=== PATIENT | male | born 1935 | race Caucasian/White ===

== ENCOUNTER → 2017-11-13 | Outpatient (CLI) | payer MEDICARE ==
[~2017-11-13] MED LIST: AMLO5 PO; ASCO500 PO; ASPI500 PO; ASPI81CH PO; CEFU500 PO; CITA20 PO; CITRACAL + BON1 EACH PO; DOXY100; ENAL10; ERGO400 PO; FINA5 PO; FISH1000 PO; HYDCHL12.5 PO; IRON150C PO; LEVFLO500 PO; LISI20 PO; METF500 PO; METO25 PO; METO25ER PO; Norco 5-325 Ta1 EACH PO; PANT40 PO; Prinivil10 MG PO; Roxicodone5 MG PO; SIMV10 PO; TAMS.4ER PO; WARF2 PO; WARF4 PO; Zantac150 MG PO; Zithromax250 MG PO
== END ==
LOC: LAB SHORT 12:01 → LAB EV 12:01
DX: N39.0 Urinary tract infection, site not specified (principal)
CPT/HCPCS: 87077; 87086; 87186

== ENCOUNTER 2018-10-03 08:06 | Emergency (ER) | payer MEDICARE, SELFPAY ==
[~2018-10-03] VITALS: Ht 172.7 cm; Wt 88.9 kg
[2018-10-03 08:49] LABS: BASOPHILS ABSOLUTE AUTO 0.06 K/mm3 (0.00-0.23); BASOPHILS PERCENT AUTO 2 % (0-2); EOSINOPHILS ABSOLUTE AUTO 0.18 K/mm3 (0.00-0.68); EOSINOPHILS PERCENT AUTO 5 % (0-6); Hematocrit 32.1 % (37.0-53.0); Hemoglobin 10.3 g/dL (13.5-17.5); IMMATURE GRAN ABSOLUTE AUTO 0.01 K/mm3 (0.00-0.10); IMMATURE GRAN PERCENT AUTO 0 % (0-1); LYMPHOCYTES ABSOLUTE AUTO 0.75 K/mm3 (0.84-5.20); LYMPHOCYTES PERCENT AUTO 19 % (21-46); MONOCYTES ABSOLUTE AUTO 0.66 K/mm3 (0.16-1.47); MONOCYTES PERCENT AUTO 17 % (4-13); Mean Corpuscular HGB 29.9 pg (26.0-34.0); Mean Corpuscular HGB Conc 32.1 g/dL (31.5-36.5); Mean Corpuscular Volume 93 fL (80-100); Mean Platelet Volume 9.5 fL (9.1-12.4); NEUTROPHILS ABSOLUTE AUTO 2.35 K/mm3 (1.96-9.15); NEUTROPHILS PERCENT AUTO 59 % (41-73); Platelet Count 159 K/mm3 (150-400); RDW Coefficient Variation 14.9 % (11.7-14.2); RDW Standard Deviation 50.6 fL (35.1-46.3); Red Blood Cell Count 3.45 M/mm3 (4.30-5.90); White Blood Cell Count 4.01 K/mm3 (4.00-11.30)
[2018-10-03 09:07] LABS: Alanine Aminotransfer (ALT/SGP 19 U/L (12-78); Albumin, Blood 3.2 g/dL (3.4-5.0); Albumin/Globulin Ratio 0.9 (0.8-1.8); Alk Phos 130 U/L (50-136); Anion Gap 9 mmol/L (6-16); Aspartate Aminotrans (AST/SGOT 12 U/L (12-37); Bilirubin, Total 0.3 mg/dL (0.1-1.0); Blood Urea Nitrogen 22 mg/dL (8-24); Bun/Creatinine Ratio 18.8 (12.0-20.0); CO2, Blood 21 mmol/L (21-32); Calcium, Blood 9.7 mg/dL (8.5-10.1); Chloride, Blood 113 mmol/L (98-108); Creatinine, Blood 1.17 mg/dL (0.60-1.20); Globulin, Blood 3.5 g/dL (2.2-4.0); Glomerular Filtration Rate >60 (60-); Glucose, Blood 106 mg/dL (70-99); Potassium, Blood 4.4 mmol/L (3.5-5.5); Sodium, Blood 143 mmol/L (136-145); Total Protein, Blood 6.7 g/dL (6.4-8.2); Troponin I 0.016 ng/mL (0.000-0.040)
[2018-10-03 09:45] LABS: Source, Urine Clean Catch
[2018-10-03 10:04] LABS: Bilirubin, Urine Neg (Neg); Blood, Urine Neg (Neg); Glucose Qualitative, Urine Neg (Neg); Ketones, Urine Neg (Neg); Leukocyte Esterase, Urine Neg (Neg); Nitrite, Urine Neg (Neg); Protein, Urine Neg (Neg); Urobilinogen, Urine NORM (Normal)
[2018-10-03 10:13] LABS: Appearance, Urine Clear (Clear); Color, Urine Yellow (P-Yellow)
[2018-10-03] MEDS ORDERED: MECL12.5 PO (10:51)
== END 2018-10-03 11:55 | disposition home or self-care (01) ==
LOC: ER 08:06
PROVIDERS: Emergency Medicine
DX: R42 Dizziness and giddiness (principal); Z88.0 Allergy status to penicillin; Z88.1 Allergy status to other antibiotic agents; Z88.8 Allergy status to other drugs, medicaments and biological substances; Z79.899 Other long term (current) drug therapy; Z79.01 Long term (current) use of anticoagulants; Z79.84 Long term (current) use of oral hypoglycemic drugs; Z79.82 Long term (current) use of aspirin; I25.2 Old myocardial infarction; E11.9 Type 2 diabetes mellitus without complications; K21.9 Gastro-esophageal reflux disease without esophagitis; Z87.891 Personal history of nicotine dependence
CPT/HCPCS: 71046; 80053; 81003; 84484; 85025; 93005; 93010; 99284-25

== ENCOUNTER 2018-10-26 10:34 | Emergency (ER) | payer MEDICARE, SELFPAY ==
[~2018-10-26] VITALS: Ht 172.7 cm; Wt 91.2 kg
[~2018-10-26 10:34] MED LIST changes: +MECL12.5 PO
[2018-10-26 11:33] LABS: BASOPHILS ABSOLUTE AUTO 0.06 K/mm3 (0.00-0.23); BASOPHILS PERCENT AUTO 1 % (0-2); EOSINOPHILS ABSOLUTE AUTO 0.11 K/mm3 (0.00-0.68); EOSINOPHILS PERCENT AUTO 2 % (0-6); Hemoglobin 9.8 g/dL (13.5-17.5); IMMATURE GRAN ABSOLUTE AUTO 0.02 K/mm3 (0.00-0.10); IMMATURE GRAN PERCENT AUTO 0 % (0-1); LYMPHOCYTES ABSOLUTE AUTO 0.63 K/mm3 (0.84-5.20); LYMPHOCYTES PERCENT AUTO 13 % (21-46); MONOCYTES ABSOLUTE AUTO 0.63 K/mm3 (0.16-1.47); MONOCYTES PERCENT AUTO 13 % (4-13); Mean Corpuscular HGB 30.7 pg (26.0-34.0); Mean Corpuscular HGB Conc 32.7 g/dL (31.5-36.5); Mean Corpuscular Volume 94 fL (80-100); Mean Platelet Volume 9.2 fL (9.1-12.4); NEUTROPHILS ABSOLUTE AUTO 3.44 K/mm3 (1.96-9.15); NEUTROPHILS PERCENT AUTO 70 % (41-73); Platelet Count 206 K/mm3 (150-400); RDW Coefficient Variation 14.9 % (11.7-14.2); RDW Standard Deviation 51.4 fL (35.1-46.3); Red Blood Cell Count 3.19 M/mm3 (4.30-5.90); White Blood Cell Count 4.89 K/mm3 (4.00-11.30)
[2018-10-26 11:49] LABS: Alanine Aminotransfer (ALT/SGP 22 U/L (12-78); Albumin, Blood 3.5 g/dL (3.4-5.0); Alk Phos 93 U/L (50-136); Anion Gap 10 mmol/L (6-16); Aspartate Aminotrans (AST/SGOT 14 U/L (12-37); Bilirubin, Total 0.8 mg/dL (0.1-1.0); Blood Urea Nitrogen 25 mg/dL (8-24); Bun/Creatinine Ratio 21.9 (12.0-20.0); CO2, Blood 22 mmol/L (21-32); Calcium, Blood 10.1 mg/dL (8.5-10.1); Chloride, Blood 108 mmol/L (98-108); Creatinine, Blood 1.14 mg/dL (0.60-1.20); Globulin, Blood 3.6 g/dL (2.2-4.0); Glomerular Filtration Rate >60 (60-); Glucose, Blood 95 mg/dL (70-99); Sodium, Blood 140 mmol/L (136-145); Total Protein, Blood 7.1 g/dL (6.4-8.2)
[2018-10-26 11:51] LABS: International Normalized Ratio 2.46
== END 2018-10-26 13:00 | disposition home or self-care (01) ==
LOC: ER 10:34
PROVIDERS: Emergency Medicine
DX: S90.32XA Contusion of left foot, initial encounter (principal); I50.9 Heart failure, unspecified; E11.9 Type 2 diabetes mellitus without complications; J44.9 Chronic obstructive pulmonary disease, unspecified; I25.2 Old myocardial infarction; Z87.891 Personal history of nicotine dependence; Z88.0 Allergy status to penicillin; Z88.1 Allergy status to other antibiotic agents; Z88.8 Allergy status to other drugs, medicaments and biological substances; Z79.899 Other long term (current) drug therapy; Z79.82 Long term (current) use of aspirin; Z79.01 Long term (current) use of anticoagulants; Z79.84 Long term (current) use of oral hypoglycemic drugs
CPT/HCPCS: 36415; 73630; 80053; 83880; 85025; 85610; 99283-25

== ENCOUNTER 2019-03-08 12:30 | Observation (INO) | payer MEDICARE, OTHER ==
[~2019-03-08] VITALS: Ht 172.7 cm; Wt 94.0 kg
[~2019-03-08 12:30] MED LIST changes: -ASPI81CH PO; -CITRACAL + BON1 EACH PO; -FINA5 PO; -FISH1000 PO; -HYDCHL12.5 PO; -METF500 PO; -METO25 PO; -PANT40 PO; -Prinivil10 MG PO; -SIMV10 PO; -TAMS.4ER PO
[2019-03-08 13:13] LABS: BASOPHILS ABSOLUTE AUTO 0.02 K/mm3 (0.00-0.23); BASOPHILS PERCENT AUTO 0 % (0-2); EOSINOPHILS PERCENT AUTO 0 % (0-6); Hematocrit 33.3 % (37.0-53.0); Hemoglobin 10.8 g/dL (13.5-17.5); IMMATURE GRAN ABSOLUTE AUTO 0.03 K/mm3 (0.00-0.10); IMMATURE GRAN PERCENT AUTO 0 % (0-1); LYMPHOCYTES ABSOLUTE AUTO 0.58 K/mm3 (0.84-5.20); LYMPHOCYTES PERCENT AUTO 8 % (21-46); MONOCYTES ABSOLUTE AUTO 1.18 K/mm3 (0.16-1.47); MONOCYTES PERCENT AUTO 16 % (4-13); Mean Corpuscular HGB 29.3 pg (26.0-34.0); Mean Corpuscular HGB Conc 32.4 g/dL (31.5-36.5); Mean Corpuscular Volume 90 fL (80-100); NEUTROPHILS ABSOLUTE AUTO 5.37 K/mm3 (1.96-9.15); NEUTROPHILS PERCENT AUTO 75 % (41-73); Platelet Count 175 K/mm3 (150-400); RDW Coefficient Variation 15.6 % (11.7-14.2); RDW Standard Deviation 51.3 fL (35.1-46.3); Red Blood Cell Count 3.69 M/mm3 (4.30-5.90); White Blood Cell Count 7.18 K/mm3 (4.00-11.30)
[2019-03-08 13:36] LABS: Albumin, Blood 3.5 g/dL (3.4-5.0); Albumin/Globulin Ratio 0.9 (0.8-1.8); Bilirubin, Total 0.7 mg/dL (0.1-1.0); Calcium, Blood 9.7 mg/dL (8.5-10.1); Creatinine, Blood 1.6 mg/dL (0.60-1.20); Globulin, Blood 4.1 g/dL (2.2-4.0); Potassium, Blood 4.2 mmol/L (3.5-5.5); Total Protein, Blood 7.6 g/dL (6.4-8.2); Troponin I 0.057 ng/mL (0.000-0.040)
[2019-03-08] MEDS ORDERED: Hydrochloroth12.5 MG PO (15:13)
[2019-03-08] MEDS ORDERED: SIMV40 PO (15:13)
[2019-03-08] MEDS ORDERED: METF500C PO (15:14)
[2019-03-08] MEDS ORDERED: TAMS.4ER PO (15:14)
[2019-03-08] MEDS ORDERED: PANT40 PO (15:15)
[2019-03-08] MEDS ORDERED: FINA5 PO (15:15)
[2019-03-08] MEDS ORDERED: Zoloft25 MG PO (15:16)
[2019-03-08] MEDS ORDERED: METO25 PO (15:16)
[2019-03-08] MEDS ORDERED: PRINIVIL10 MG PO (15:19)
[2019-03-08] MEDS ORDERED: WARF4 PO (15:21)
[2019-03-08] MEDS ORDERED: VITAMIN D350 MCG PO (15:40)
[2019-03-08] MEDS ORDERED: Fish Oil 10001000 MG PO (15:40)
[2019-03-08] MEDS ORDERED: Aspir 8181 MG PO (15:40)
--- NOTE | 2019-03-08 16:42 | NUR ---
ER ADMIT- PT ARRIVED TO PCU 13 FROM ED, PT SBA INTO BED. 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 PT DENIES ANY COMPLAINTS. LS CLEAR, ON RA, SOB WITH EXERTION. PT REPORTS USES BIPAP AT HS THAT SON IS BRINGING IN. TELE 100% PACED AT 66. 1+ BLE EDEMA. PT SPOUSE AT BEDSIDE AND ASSISTS WITH ADMIT HISTORY. PT ORIENTED TO ROOM AND CALL SYSTEM. VSS. CALL LIGHT IN REACH. DR MORALEZ IN TO SEE PT AT THIS TIME.
[2019-03-08 18:36] LABS: Source, Urine Clean Catch
[2019-03-08 18:42] LABS: Bilirubin, Urine Neg (Neg); Blood, Urine Neg (Neg); Glucose Qualitative, Urine Neg (Neg); Ketones, Urine Neg (Neg); Leukocyte Esterase, Urine 1+ (Neg); Nitrite, Urine Neg (Neg); Protein, Urine 1+ (Neg); Specific Gravity, Urine 1.015 (1.003-1.022); Urobilinogen, Urine NORM (Normal)
[2019-03-08 18:47] LABS: Appearance, Urine Clear (Clear); Color, Urine Yellow (P-Yellow)
[2019-03-08 18:49] LABS: Bacteria Few /hpf; Red Blood Cells, Urine 0-2 /hpf (0-2); Squamous Epithelial Cells Few /hpf (Few)
[2019-03-09 01:58] LABS: Bun/Creatinine Ratio 23.2 (12.0-20.0); Calcium, Blood 10.2 mg/dL (8.5-10.1); Creatinine, Blood 1.55 mg/dL (0.60-1.20); International Normalized Ratio 3.16; Potassium, Blood 3.8 mmol/L (3.5-5.5); Prothrombin Time Results 30.2 Sec (9.7-11.5)
--- NOTE | 2019-03-09 07:20 | NUR ---
SHIFT SUMMARY PT IS AN 83 Y/O MALE, ADMITTED FOR ELEVATED TROPONINS. HE IS A&O X 3, THOUGH CAN BE OCCASIONALLY FORGETFUL. HE IS INDEPENDENT UP WITH A URINAL. NO COMPLAINTS OF PAIN, NAUSEA OR SOB. VITAL SIGNS STABLE. TELE SHOWED 100% VENTRICULAR PACED IN THE 60S. NO ACUTE CHANGES IN PT CONDITION NOTED DURING THE NIGHT. REPORT GIVEN TO ONCOMING RN.
[2019-03-09] MEDS ORDERED: FURO40 PO (17:17)
[2019-03-09] MEDS ORDERED: POTCHL20ER PO (17:18)
--- NOTE | 2019-03-09 18:08 | NUR ---
DISCHARGE INSTRUCTIONS GONE OVER WITH PT AND FAMILY. PROVIDED SPECIFIC INSTRUCTIONS REGARDING CHF AND CARE AT HOME. INFORMED PT ON HOW/WHERE TO GERIATRIC CASE MANAGER PRESCRIPTIONS. BELONGINS GATHERED AND SENT WITH PT AND FAMILY. PT WAS ESCORTED OUT VIA W/C BY [facility].
== END 2019-03-09 18:07 | disposition home or self-care (01) ==
LOC: ER 12:30 → PCU 12:31
PROVIDERS: Emergency Medicine; ADMIT Internal Medicine Endocrinology, Diabetes & Metabolism
DX: I11.0 Hypertensive heart disease with heart failure (principal); I50.23 Acute on chronic systolic (congestive) heart failure; R79.89 Other specified abnormal findings of blood chemistry; I25.10 Atherosclerotic heart disease of native coronary artery without angina pectoris; I48.20 Chronic atrial fibrillation, unspecified; F01.50 Vascular dementia, unspecified severity, without behavioral disturbance, psychotic disturbance, mood disturbance, and anxiety; K21.0 Gastro-esophageal reflux disease with esophagitis; J44.9 Chronic obstructive pulmonary disease, unspecified; D64.9 Anemia, unspecified; G47.33 Obstructive sleep apnea (adult) (pediatric); R73.01 Impaired fasting glucose; R79.1 Abnormal coagulation profile; E66.9 Obesity, unspecified; Z68.31 Body mass index [BMI] 31.0-31.9, adult; Z90.49 Acquired absence of other specified parts of digestive tract; Z95.0 Presence of cardiac pacemaker; Z87.891 Personal history of nicotine dependence; Z88.0 Allergy status to penicillin; Z88.1 Allergy status to other antibiotic agents; Z88.8 Allergy status to other drugs, medicaments and biological substances; Z79.84 Long term (current) use of oral hypoglycemic drugs; Z79.82 Long term (current) use of aspirin; Z79.899 Other long term (current) drug therapy; Z95.1 Presence of aortocoronary bypass graft; Z86.73 Personal history of transient ischemic attack (TIA), and cerebral infarction without residual deficits
CPT/HCPCS: 36415; 71046; 80048; 80053; 81001; 83880; 84484; 85025; 85610; 87086; 93005; 93010; 93306; 94762; 96374; 99285-25; G0378; J1940

== ENCOUNTER → 2019-06-27 | Outpatient (CLI) | payer MEDICARE, OTHER ==
[~2019-06-27] MED LIST changes: +Aspir 8181 MG PO; +FINA5 PO; +FURO40 PO; +Fish Oil 10001000 MG PO; +Hydrochloroth12.5 MG PO; +METF500C PO; +METO25 PO; +PANT40 PO; +POTCHL20ER PO; +PRINIVIL10 MG PO; +SIMV40 PO; +TAMS.4ER PO; +VITAMIN D350 MCG PO; +Zoloft25 MG PO
[2019-06-27 11:39] LABS: BASOPHILS ABSOLUTE AUTO 0.06 K/mm3 (0.00-0.23); BASOPHILS PERCENT AUTO 1 % (0-2); EOSINOPHILS ABSOLUTE AUTO 0.13 K/mm3 (0.00-0.68); EOSINOPHILS PERCENT AUTO 2 % (0-6); Hematocrit 35.2 % (37.0-53.0); IMMATURE GRAN ABSOLUTE AUTO 0.02 K/mm3 (0.00-0.10); IMMATURE GRAN PERCENT AUTO 0 % (0-1); LYMPHOCYTES ABSOLUTE AUTO 0.84 K/mm3 (0.84-5.20); LYMPHOCYTES PERCENT AUTO 14 % (21-46); MONOCYTES PERCENT AUTO 12 % (4-13); Mean Corpuscular HGB 30.8 pg (26.0-34.0); Mean Corpuscular HGB Conc 34.1 g/dL (31.5-36.5); Mean Corpuscular Volume 90 fL (80-100); Mean Platelet Volume 9.7 fL (9.1-12.4); NEUTROPHILS ABSOLUTE AUTO 4.07 K/mm3 (1.96-9.15); NEUTROPHILS PERCENT AUTO 70 % (41-73); Platelet Count 215 K/mm3 (150-400); RDW Coefficient Variation 14.9 % (11.7-14.2); White Blood Cell Count 5.82 K/mm3 (4.00-11.30)
[2019-06-27 11:50] LABS: Albumin, Blood 3.9 g/dL (3.4-5.0); Bilirubin, Total 0.6 mg/dL (0.1-1.0); Bun/Creatinine Ratio 16.3 (12.0-20.0); Calcium, Blood 10.8 mg/dL (8.5-10.1); Creatinine, Blood 1.41 mg/dL (0.60-1.20); Potassium, Blood 3.5 mmol/L (3.5-5.5); Total Protein, Blood 7.9 g/dL (6.4-8.2); Troponin I 0.036 ng/mL (0.000-0.040)
[2019-06-27 12:56] LABS: International Normalized Ratio 2.13; Prothrombin Time Results 21.8 Sec (9.7-11.5)
[2019-06-27 20:31] LABS: Campylobacter Sp Not Detected (NOT DETECT)
[2019-06-27 20:32] LABS: Adenovirus F 40/41 Not Detected (NOT DETECT); Astrovirus Not Detected (NOT DETECT); Cryptosporidium Not Detected (NOT DETECT); Cyclospora Cayetanensis Not Detected (NOT DETECT); E. Coli O157 Not Detected (NOT DETECT); Entamoeba Histolytica Not Detected (NOT DETECT); Enteroaggregative E. coli-EAEC Not Detected (NOT DETECT); Enteropathogenic E. coli-EPEC Not Detected (NOT DETECT); Enterotoxigenic E. coli-ETEC Not Detected (NOT DETECT); Giardia Lamblia Not Detected (NOT DETECT); Norovirus GI/GII Not Detected (NOT DETECT); Plesiomonas Shigelloides Not Detected (NOT DETECT); Rotavirus A Not Detected (NOT DETECT); Salmonella Sp Not Detected (NOT DETECT); Sapovirus Not Detected (NOT DETECT); Shiga Toxin-prod E. coli-STEC Not Detected (NOT DETECT); Shigella/Enteroin E. coli-EIEC Not Detected (NOT DETECT); Vibrio Cholerae Not Detected (NOT DETECT); Vibrio Sp Not Detected (NOT DETECT); Yersinia Enterocolitica Not Detected (NOT DETECT)
== END | disposition home or self-care (01) ==
LOC: LAB SHORT 11:33 → LAB EV 11:33
PROVIDERS: Physician Assistant
DX: Z79.01 Long term (current) use of anticoagulants (principal); Z51.81 Encounter for therapeutic drug level monitoring; R07.9 Chest pain, unspecified; R10.9 Unspecified abdominal pain; R19.7 Diarrhea, unspecified
CPT/HCPCS: 0097U; 80053; 83690; 84484; 85025; 85610

== ENCOUNTER → 2019-07-20 | Outpatient (CLI) | payer MEDICARE, OTHER ==
[2019-07-20 14:32] LABS: International Normalized Ratio 2.67
== END ==
LOC: LAB EV 09:50 → LAB SHORT 09:50
PROVIDERS: Physician Assistant
DX: I48.91 Unspecified atrial fibrillation (principal)
CPT/HCPCS: 85610

== ENCOUNTER → 2019-12-22 | Outpatient (CLI) | payer MEDICARE, OTHER ==
[2019-12-23 10:08] LABS: Calcium, Urine Calculation Unable to Calculate mg/24hrs (42.0-353.0)
[2019-12-23 10:09] LABS: Calcium, Urine <5.0 mg/dL (< 17.5)
== END | disposition home or self-care (01) ==
LOC: LAB 10:16 → LAB SHORT 10:16
PROVIDERS: Physician Assistant
DX: E83.52 Hypercalcemia (principal)
CPT/HCPCS: 81050; 82340

== ENCOUNTER 2020-05-03 09:24 | Day surgery (SDC) | payer MEDICARE, SELFPAY ==
[~2020-05-03] VITALS: Ht 165.1 cm; Wt 100.0 kg
--- NOTE | 2020-05-03 14:09 | NUR ---
SPOKE WITH PHARMACIST NINA REGARDING PT'S ALLERGIES. NINA RECOMMENDED ANCEF FOR CASE.
--- NOTE | 2020-05-03 16:52 | NUR ---
PT ARRIVED BACK TO RECOVERY ROOM IN BED. LACW PACEMAKER CHANGE-OUT SITE SOFT NON-TENDER WITH NO HEMATOMA, NO PULSATILE BLEEDING WITH INTACT DRESSING. PT DENIES CHEST PAIN. PT'S IN ROOM. PT IS EATING FOOD AND DRINKING COFFEE. CALL LIGHT IN REACH.
--- NOTE | 2020-05-03 17:41 | NUR ---
NO CHANGES TO [facility] PACEMAKER SITE. DISCHARGE INSTRUCTIONS REVIEWED ALL QUESIONS ANSWERED.
--- NOTE | 2020-05-03 18:04 | NUR ---
NO CHANGES TO LACW SITE. 20 G IV DISCONTINUED FROM RIGHT AC WITH INTACT CANNULA. PT ESCORTED OUT VIA WHEELCHAIR ESCORT.
== END 2020-05-03 18:00 | disposition home or self-care (01) ==
LOC: MHTC 09:24
DX: Z45.010 Encounter for checking and testing of cardiac pacemaker pulse generator [battery] (principal); I49.5 Sick sinus syndrome; I48.21 Permanent atrial fibrillation; I25.10 Atherosclerotic heart disease of native coronary artery without angina pectoris; I12.9 Hypertensive chronic kidney disease with stage 1 through stage 4 chronic kidney disease, or unspecified chronic kidney disease; E11.22 Type 2 diabetes mellitus with diabetic chronic kidney disease; N18.9 Chronic kidney disease, unspecified; E11.51 Type 2 diabetes mellitus with diabetic peripheral angiopathy without gangrene; I25.2 Old myocardial infarction; I45.89 Other specified conduction disorders; E78.00 Pure hypercholesterolemia, unspecified; I08.1 Rheumatic disorders of both mitral and tricuspid valves; I27.20 Pulmonary hypertension, unspecified; Z87.891 Personal history of nicotine dependence; Z98.61 Coronary angioplasty status; Z79.82 Long term (current) use of aspirin; Z79.84 Long term (current) use of oral hypoglycemic drugs; Z79.01 Long term (current) use of anticoagulants; Z88.1 Allergy status to other antibiotic agents; Z88.0 Allergy status to penicillin; Z88.8 Allergy status to other drugs, medicaments and biological substances
CPT/HCPCS: 33228; 99152; 99153; C1781; C1785; J0690; J1644; J2250; J3010; J7030; J7040

== ENCOUNTER 2023-01-25 11:56 | Emergency (ER) | payer MEDICARE ==
[~2023-01-25] VITALS: Ht 170.2 cm; Wt 86.2 kg
[2023-01-25] MEDS ORDERED: AZIT200SU (12:24)
[2023-01-25 12:38] LABS: BASOPHILS ABSOLUTE AUTO 0.06 K/mm3 (0.00-0.23); BASOPHILS PERCENT AUTO 1 % (0-2); EOSINOPHILS PERCENT AUTO 2 % (0-6); Hematocrit 34.9 % (37.0-53.0); Hemoglobin 11.1 g/dL (13.5-17.5); IMMATURE GRAN ABSOLUTE AUTO 0.04 K/mm3 (0.00-0.10); IMMATURE GRAN PERCENT AUTO 1 % (0-1); LYMPHOCYTES PERCENT AUTO 9 % (21-46); MONOCYTES ABSOLUTE AUTO 0.79 K/mm3 (0.16-1.47); MONOCYTES PERCENT AUTO 14 % (4-13); Mean Corpuscular HGB 29.4 pg (26.0-34.0); Mean Corpuscular HGB Conc 31.8 g/dL (31.5-36.5); Mean Corpuscular Volume 93 fL (80-100); Mean Platelet Volume 9.5 fL (9.1-12.4); NEUTROPHILS ABSOLUTE AUTO 4.01 K/mm3 (1.96-9.15); NEUTROPHILS PERCENT AUTO 73 % (41-73); Platelet Count 269 K/mm3 (150-400); RDW Coefficient Variation 15.2 % (11.7-14.2); RDW Standard Deviation 51.3 fL (35.1-46.3); Red Blood Cell Count 3.77 M/mm3 (4.30-5.90)
[2023-01-25 12:46] LABS: Albumin, Blood 2.8 g/dL (3.4-5.0); Albumin/Globulin Ratio 0.5 (0.8-1.8); Bilirubin, Total 0.5 mg/dL (0.1-1.0); Bun/Creatinine Ratio 19.9 (12.0-20.0); Calcium, Blood 10.2 mg/dL (8.5-10.1); Creatinine, Blood 1.36 mg/dL (0.60-1.20); Globulin, Blood 5.1 g/dL (2.2-4.0); Potassium, Blood 4.2 mmol/L (3.5-5.5); Total Protein, Blood 7.9 g/dL (6.4-8.2)
[2023-01-25 13:23] LABS: Prothrombin Time Results 44.5 Sec (9.7-11.5)
[2023-01-25 13:27] LABS: International Normalized Ratio 4.62
[2023-01-25 13:45] LABS: Influenza A, PCR NEGATIVE (NEGATIVE); Influenza B, PCR NEGATIVE (NEGATIVE); Resp Syncytial Virus, PCR NEGATIVE (NEGATIVE); SARS-Cov-2 (COVID-19) PCR, MMC NEGATIVE (NEGATIVE)
[2023-01-25] MEDS ORDERED: Monodox100 MG PO ×2 (14:47→15:09)
[2023-01-25] MEDS ORDERED: CEFD300 PO ×2 (14:47→15:09)
[2023-01-25 15:42] VITALS: BP 151/71
== END 2023-01-25 15:57 | disposition home or self-care (01) ==
LOC: ER 11:56
PROVIDERS: Physician Assistant
DX: J18.9 Pneumonia, unspecified organism (principal); J44.9 Chronic obstructive pulmonary disease, unspecified; E11.9 Type 2 diabetes mellitus without complications; I10 Essential (primary) hypertension; I25.2 Old myocardial infarction; I48.20 Chronic atrial fibrillation, unspecified; Z11.52 Encounter for screening for COVID-19; Z88.0 Allergy status to penicillin; Z88.1 Allergy status to other antibiotic agents; Z88.8 Allergy status to other drugs, medicaments and biological substances; Z79.01 Long term (current) use of anticoagulants; Z79.82 Long term (current) use of aspirin; Z79.899 Other long term (current) drug therapy; Z87.891 Personal history of nicotine dependence
CPT/HCPCS: 0241U; 71045; 80053; 83880; 84484; 85025; 85610; 93005; 93010; 94640; 96365; 96375; 99285-25; A9270; J0696; J2930

== ENCOUNTER 2023-01-31 09:22 | Emergency (ER) | payer MEDICARE ==
[~2023-01-31] VITALS: Ht 172.7 cm; Wt 86.2 kg
[~2023-01-31 09:22] MED LIST changes: +AZIT200SU; +CEFD300 PO; +Monodox100 MG PO
[2023-01-31 11:03] LABS: Adenovirus Not Detected (NOT DETECT); Bordetella pertussis Not Detected (NOT DETECT); Chlamydophila pneumoniae Not Detected (NOT DETECT); Coronavirus 229E Not Detected (NOT DETECT); Coronavirus HKU1 Not Detected (NOT DETECT); Coronavirus NL63 Not Detected (NOT DETECT); Coronavirus OC43 Not Detected (NOT DETECT); Human Metapneumovirus Not Detected (NOT DETECT); Human Rhinovirus/Enterovirus Detected (NOT DETECT); Influenza A/2009-H1 Not Detected (NOT DETECT); Influenza A/H1 Not Detected (NOT DETECT); Influenza A/H3 Not Detected (NOT DETECT); Influenza B Not Detected (NOT DETECT); Parainfluenza Virus 1 Not Detected (NOT DETECT); Parainfluenza Virus 2 Not Detected (NOT DETECT); Parainfluenza Virus 3 Not Detected (NOT DETECT); Parainfluenza Virus 4 Not Detected (NOT DETECT); Respiratory Syncytial Virus Not Detected (NOT DETECT); SARS-Cov-2 (COVID-19), BioFire Not Detected (NOT DETECT)
[2023-01-31 11:04] LABS: Mycoplasma pneumoniae Not Detected (NOT DETECT)
[2023-01-31] MEDS ORDERED: LIDO700A20 TOP (11:30)
[2023-01-31] MEDS ORDERED: PRED20 PO (11:30)
[2023-01-31 12:00] VITALS: BP 110/56
== END 2023-01-31 12:08 | disposition home or self-care (01) ==
LOC: ER 09:22
PROVIDERS: Student in an Organized Health Care Education/Training Program
DX: J44.0 Chronic obstructive pulmonary disease with (acute) lower respiratory infection (principal); M94.0 Chondrocostal junction syndrome [Tietze]; J20.6 Acute bronchitis due to rhinovirus; I11.0 Hypertensive heart disease with heart failure; I50.32 Chronic diastolic (congestive) heart failure; Z20.822 Contact with and (suspected) exposure to COVID-19; I48.91 Unspecified atrial fibrillation; I25.2 Old myocardial infarction; E11.9 Type 2 diabetes mellitus without complications; K21.9 Gastro-esophageal reflux disease without esophagitis; Z87.891 Personal history of nicotine dependence; Z79.01 Long term (current) use of anticoagulants; Z79.84 Long term (current) use of oral hypoglycemic drugs; Z79.82 Long term (current) use of aspirin; Z79.2 Long term (current) use of antibiotics; Z79.899 Other long term (current) drug therapy; Z88.0 Allergy status to penicillin; Z88.1 Allergy status to other antibiotic agents; Z88.8 Allergy status to other drugs, medicaments and biological substances
CPT/HCPCS: 0202U; 71046; 93005; 93010; A9270; J7512